=== PATIENT | male | born 1955 | race Caucasian/White ===

== ENCOUNTER 2017-08-02 15:59 | Emergency (ER) | payer OTHER ==
[2017-08-02 16:07] VITALS: BP 114/69
--- NOTE | 2017-08-02 16:20 | UC ---
Throat Pain/Nasal Leonard HPI - HPI Summary HPI Summary: 61 y/o male presents to the urgent care c/o productive cough for the past 3 weeks. Pt reports symptoms started w/ the flu, then the cough has been lingering for the past 3 weeks. It was dry at the beginning and now is productive w/ mil yellowish phlegm. Pt states he has develops sore throat, nasal discharge and +PND for the past week. Pain w/ swallowing is 5/10. He has taken Nyquill PO, Aleve PO to alleviate symptoms. Pt denies fever, SOB, chest pain, abdominal pain, N/V/D. - History of Current Complaint Chief Complaint: UCRespiratory Stated Complaint: SORE THROAT, CHILLS, HEADACHES, AND CONGESTION Time Seen by Provider: 08/02/17 16:17 Hx Obtained From: Patient Onset/Duration: Gradual Onset, Lasting Weeks - 3 weeks, Worse Since - 1 week Severity: Moderate Pain Intensity: 4 - sore throat Pain Scale Used: 0-10 Numeric Cough: Sputum Appears - yellowish Associated Signs & Symptoms: Positive: Dysphagia, Nasal Discharge, Other - +PND - Epiglottits Risk Factors Epiglottis Risk Factors: Negative - Allergies/Home Medications Allergies/Adverse Reactions: Allergies Allergy/AdvReac Type Severity Reaction Status Date / Time No Known Allergies Allergy Verified 08/02/17 16:08 Home Medications: Home Medications Naproxen Sodium [Aleve] 2 cap PO DAILY PRN 08/02/17 [History Confirmed 08/02/17] PMH/Surg Hx/FS Hx/Imm Hx Previously Healthy: Yes - Pt denies PMHX - Surgical History Surgical History: None - Family History Family History: psoriasis - Social History Occupation: Employed Full-time Lives: With Family Alcohol Use: Occasionally Substance Use Type: None Smoking Status (MU): Never Smoked Tobacco Review of Systems Constitutional: Chills, Other - body aches Skin: Negative Eyes: Negative ENT: Sore Throat, Nasal Discharge Respiratory: Cough - productive w/ yellowish phlegm Cardiovascular: Negative Gastrointestinal: Negative Genitourinary: Negative Motor: Negative Neurovascular: Negative Musculoskeletal: Negative Neurological: Headache Psychological: Negative Is Patient Immunocompromised?: No All Other Systems Reviewed And Are Negative: Yes Physical Exam - Summary Physical Exam Summary: VITAL SIGNS: Reviewed. GENERAL: Patient is a well developed and nourished male who is sitting comfortable in the examining table. Patient is not in any acute respiratory distress. HEAD AND FACE: No signs of trauma. No ecchymosis, hematomas or skull depressions. No sinus tenderness. EYES: PERRLA, EOMI x 2, No injected conjunctiva, no nystagmus. No photophobia. EARS: Hearing grossly intact. Ear canals and tympanic membranes are within normal limits. MOUTH: Positive pharynx with erythema,no exudates, no palatal petechiae. NO B/ L tonsillar enlargement. Uvula in midline. NECK: Supple, trachea is midline, Positive anterior cervical lymphadenopathy, no JVD, no carotid bruit, no c-spine tenderness, neck with full ROM. No meningeal signs, no Kernig's or brudzinskis signs. CHEST: Symmetric, no tenderness at palpation LUNGS: positive breath sounds B/L. Mild posterior lungs w/ scattered rhonchi . No wheezing or crackles. CVS: Regular rate and rhythm, S1 and S2 present, no murmurs or gallops appreciated. ABDOMEN: Soft, non-tender. No signs of distention. No rebound no guarding, and no masses palpated. Bowel sounds are normal. EXTREMITIES: FROM in all major joints, no edema, no cyanosis or clubbing. NEURO: Alert and oriented x 3. No acute neurological deficits. Speech is normal and follows commands. SKIN: Dry and warm Triage Information Reviewed: Yes Vital Signs: Initial Vital Signs Temp 98.4 F 08/02/17 16:03 Pulse 74 08/02/17 16:03 Resp 14 08/02/17 16:03 BP 114/69 08/02/17 16:03 Pulse Ox 98 08/02/17 16:03 Throat Pain/Nasal Course/Dx - Course Course Of Treatment: 61 y/o male presents to the urgent care c/o productive cough for the past 3 weeks. Pt reports symptoms started w/ the flu, then the cough has been lingering for the past 3 weeks. It was dry at the beginning and now is productive w/ mil yellowish phlegm. Pt states he has develops sore throat , nasal discharge and +PND for the past week. Pain w/ swallowing is 5/10. He has taken Nyquill PO, Aleve PO to alleviate symptoms. Pt denies fever, SOB, chest pain, abdominal pain, N/V/D.Hx obtained. Pt w/ mild scattered rhonchi in B /L posterior upper lungs on examination. Pt w/ 3 weeks of worsening symptoms. Probably Acute bronchitis. Rapid strep ordered: negative. Pt Rx Z-corwin and Tessalon tabs PO to alleviate cough. Pt advised to increase fluid intake and eat well. if not improvement or worsening of symptoms to return to the urgent care or f/u with PCP for further management. PT understood and agreed with plan of care - Differential Dx/Diagnosis Differential Diagnosis/HQI/PQRI: Influenza, Laryngitis, Pharyngitis, Sinusitis, Tonsillitis, URI, Other - bronchitis Provider Diagnoses: 1- Acute bronchitis. 2-Cough Discharge - Sign-Out/Discharge Documenting (check all that apply): Discharge - Discharge Plan Condition: Stable Disposition: HOME Prescriptions: Azithromyxin CORWIN (NF) [Z-Corwin (Zithromax) 250 mg tabs #6] 2 tab PO .TODAY, THEN 1 DAILY #6 tab Benzonatate CAP* [Tessalon 100 MG CAP*] 100 mg PO TID PRN #21 cap PRN Reason: Cough Patient Education Materials: Acute Bronchitis (ED) Referrals: [facility] [Outside] - 1 Week Additional Instructions: 1-Please take full course of antibiotic to avoid resistance. Continue taking Aleve after meals to alleviate pain and swelling. 2-Take Tessalon PO tabs as directed to alleviate cough. Increase fluid intake, rest and eat well. 3- F/u with your PCP in 1 week days for further management - Billing Disposition and Condition Condition: STABLE Disposition: HOME
== END 2017-08-02 17:08 | disposition home or self-care (01) ==
LOC: UCEAST 15:59
DX: J20.9 Acute bronchitis, unspecified (principal); R51 Headache
CPT/HCPCS: 87651; 99212; G0463